=== PATIENT | female | born 1975 | race Two or more races ===

== ENCOUNTER 2017-01-15 21:32 | Inpatient (IN) | payer OTHER, MEDICAID ==
[~2017-01-15] VITALS: Ht 175.3 cm; Wt 122.8 kg
[~2017-01-15 21:32] MED LIST: NOR10T PO
[2017-01-15] MEDS ORDERED: SODIUM CHLORIDE 0.9% 1,000 ML IVB ONE (22:32)
[2017-01-15] MEDS ORDERED: ACETAMINOPHEN 325 MG TAB PO ONE (22:45)
[2017-01-15 22:59] LABS: Basophils # (auto) 0 uL; Basophils % (auto) 0.3 % (0.0-2.0); Eosinophils # (auto) 0.3 uL; Eosinophils % (auto) 2.5 % (0.0-7.0); Hematocrit 37.8 % (36.0-46.0); Hemoglobin 12.6 g/dL (12.2-16.2); Lymphocytes # (auto) 2.8 uL; Lymphocytes % (auto) 26.3 % (10.0-50.0); Mean Corpuscular Hemoglobin 28.8 pg (28.0-32.0); Mean Corpuscular Hgb Conc. 33.3 g/dL (32.0-36.0); Mean Corpuscular Volume 86.5 fL (80.0-100.0); Mean Platelet Volume 8.1 fL (7.4-10.4); Monocytes # (auto) 0.6 uL; Monocytes % (auto) 5.2 % (0.0-12.0); Neutrophils # (auto) 7.1 uL; Neutrophils % (auto) 65.7 % (37.0-80.0); Platelet Count (auto) 328 10^3/uL (140-450); Red Cell Distribution Width 13.9 % (11.6-16.0); White Blood Cell 10.8 10^3/uL (4.4-10.8)
[2017-01-15 23:06] LABS: Urine Bilirubin Negative (Negative); Urine Color Yellow (Yellow); Urine Glucose Normal (Normal); Urine Ketone Negative (Negative); Urine Nitrite Negative (Negative); Urine RBC 3 /hpf (0 - 4); Urine Squamous Epithelial Cell MOD /hpf (<5); Urine Urobilinogen Normal (Negative); Urine pH 5.5 (5.0-8.0)
[2017-01-15 23:07] LABS: Urine Blood 1+ /uL (Negative)
[2017-01-15 23:29] LABS: BUN/Creatinine Ratio 19.5; Calcium 8.2 mg/dL (8.5-10.1)
[2017-01-15 23:36] LABS: B-Type Natriuretic Peptide 220.57 pg/mL (0-100); Temperature: 22.7 C (20.0-25.0)
[2017-01-15 23:45] LABS: Bilirubin, Total 0.1 mg/dL (0.2-1.0); Total Protein 6.8 g/dL (6.4-8.2)
[2017-01-16] MEDS ORDERED: HEPARIN DRIP/D5W 100UNITS/ML 250 ML IV SCH ×4 (00:25→18:15)
[2017-01-16] MEDS ORDERED: HEPARIN SODIUM (PORCINE) 5000 UNITS/ML 1ML VIAL IV ONE ×3 (00:30→18:15)
[2017-01-16 01:20] LABS: INR 0.94 (0.9-1.15); Partial Thromboplastin Time 27.5 sec (22.64-33.71); Prothrombin Time 10.1 sec (9.37-12.3)
[2017-01-16] MEDS ORDERED: ASPirin 81 mg TAB PO ONE (04:30)
[2017-01-16] MEDS ORDERED: MORPHINE SULF INJ 2 MG/ML SYRINGE 1ML IV PRN (06:30)
[2017-01-16] MEDS ORDERED: DEXTROSE (50%) 50ML SYRG IV PRN (06:30)
[2017-01-16] MEDS ORDERED: NITROGLYCERIN 0.4 MG SL TAB SL PRN (06:30)
[2017-01-16] MEDS: SODIUM CHLORIDE 0.9% 1,000 ML IV SCH ×2 (06:52→21:49)
[2017-01-16 07:00] LABS: INR 0.93 (0.9-1.15); Partial Thromboplastin Time 27.6 sec (22.64-33.71)
[2017-01-16] MEDS: ONDANSETRON HCL 4 MG/2 ML VIAL IV PRN ×2 (08:59→23:29)
[2017-01-16] MEDS: MORPHINE SULF INJ 2 MG/ML SYRINGE 1ML IV PRN ×3 (08:59→20:24)
[2017-01-16] MEDS: FAMOTIDINE 20 MG TAB PO SCH (09:32)
[2017-01-16] MEDS: CARVEDILOL 12.5 MG TAB PO SCH ×3 (09:32→21:59)
[2017-01-16] MEDS ORDERED: FAMOTIDINE 20 MG TAB PO SCH (10:00)
[2017-01-16] MEDS ORDERED: METH500T6 PO (11:09)
[2017-01-16] MEDS ORDERED: CARV25TA55 PO (11:09)
[2017-01-16] MEDS ORDERED: TRAZ100T2 PO (11:09)
[2017-01-16] MEDS ORDERED: SULF400T11 PO (11:09)
[2017-01-16] MEDS ORDERED: GABA-339 PO (11:09)
[2017-01-16] MEDS: ACCU-CHEK COMFORT CURVE STRIP VI SCH ×2 (13:01→18:10)
[2017-01-16] MEDS: InsuLIN REG 1unit/0.01ml Soln (100units/ml) SC SCH ×2 (13:05→18:00)
[2017-01-16 15:09] VITALS: BP 124/83
[2017-01-16 15:40] LABS: INR 0.95 (0.9-1.15); Partial Thromboplastin Time 27.8 sec (22.64-33.71); Prothrombin Time 10.3 sec (9.37-12.3)
[2017-01-16 16:00] VITALS: BP 147/83
[2017-01-16 20:00] VITALS: BP 134/73
[2017-01-16] MEDS: ATORVASTATIN 20 MG TAB PO SCH ×2 (21:54→21:59)
[2017-01-16] MEDS ORDERED: ATORVASTATIN 20 MG TAB PO SCH ×3 (22:00)
[2017-01-17] VITALS (7 sets, daily range): BP systolic 130–156; BP diastolic 73–90
[2017-01-17] MEDS: ACCU-CHEK COMFORT CURVE STRIP VI SCH ×4 (00:23→17:39)
[2017-01-17] MEDS ORDERED: HEPARIN DRIP/D5W 100UNITS/ML 250 ML IV SCH ×3 (00:25→09:15)
[2017-01-17] MEDS: InsuLIN REG 1unit/0.01ml Soln (100units/ml) SC SCH ×4 (00:26→17:39)
[2017-01-17 03:52] LABS: INR 0.94 (0.9-1.15); Prothrombin Time 10.1 sec (9.37-12.3)
[2017-01-17] MEDS: ACETAMINOPHEN 325 MG TAB PO PRN ×2 (04:32→20:57)
[2017-01-17] MEDS: ONDANSETRON HCL 4 MG/2 ML VIAL IV PRN ×2 (04:33→15:02)
[2017-01-17] MEDS: ISOSORBIDE DINITRATE 10 MG TAB PO SCH ×3 (05:38→17:38)
[2017-01-17 06:27] LABS: Basophils # (auto) 0 uL; Basophils % (auto) 0.1 % (0.0-2.0); Eosinophils # (auto) 0 uL; Eosinophils % (auto) 0.3 % (0.0-7.0); Hematocrit 38.2 % (36.0-46.0); Hemoglobin 12.8 g/dL (12.2-16.2); Lymphocytes % (auto) 8.4 % (10.0-50.0); Mean Corpuscular Hgb Conc. 33.6 g/dL (32.0-36.0); Mean Corpuscular Volume 86.4 fL (80.0-100.0); Mean Platelet Volume 8.5 fL (7.4-10.4); Monocytes # (auto) 0.7 uL; Monocytes % (auto) 5.3 % (0.0-12.0); Neutrophils # (auto) 10.6 uL; Neutrophils % (auto) 85.9 % (37.0-80.0); Platelet Count (auto) 313 10^3/uL (140-450); Red Cell Distribution Width 13.7 % (11.6-16.0); White Blood Cell 12.4 10^3/uL (4.4-10.8)
[2017-01-17 07:05] LABS: Albumin 2.8 g/dL (3.4-5.0); BUN/Creatinine Ratio 18.8; Bilirubin, Total 0.4 mg/dL (0.2-1.0); Potassium 4.6 mmol/L (3.5-5.1); Total Protein 6.8 g/dL (6.4-8.2)
[2017-01-17] MEDS: diphenhdrAMINE HCL 50 MG/1 ML VL IV PRN ×3 (08:24→22:13)
[2017-01-17 08:56] LABS: INR 0.94 (0.9-1.15); Partial Thromboplastin Time 29.4 sec (22.64-33.71); Prothrombin Time 10.2 sec (9.37-12.3)
[2017-01-17] MEDS ORDERED: HEPARIN SODIUM (PORCINE) 5000 UNITS/ML 1ML VIAL IV ONE (09:15)
[2017-01-17] MEDS: CLOPIDOGREL BISULFATE 75 MG TAB PO SCH (09:47)
[2017-01-17] MEDS: FAMOTIDINE 20 MG TAB PO SCH (09:50)
[2017-01-17] MEDS: CARVEDILOL 12.5 MG TAB PO SCH ×2 (09:50→22:10)
[2017-01-17] MEDS: SODIUM CHLORIDE 0.9% 1,000 ML IV SCH (12:14)
[2017-01-17 14:16] LABS: INR 0.99 (0.9-1.15); Partial Thromboplastin Time 32.9 sec (22.64-33.71); Prothrombin Time 10.7 sec (9.37-12.3)
[2017-01-17] MEDS: HYDROcodone-ACET 5/325MG TAB PO PRN (15:01)
[2017-01-17] MEDS: ACETYLCYSTEINE ORAL for CIN 20%(200MG/ML) 4ML PO SCH ×2 (15:08→22:43)
[2017-01-17] MEDS ORDERED: PANTOPRAZOLE 40 MG TAB PO ONE (22:00)
[2017-01-17] MEDS: ATORVASTATIN 20 MG TAB PO SCH (22:09)
[2017-01-17] MEDS: MORPHINE SULF INJ 2 MG/ML SYRINGE 1ML IV PRN (22:11)
[2017-01-18] MEDS: SODIUM CHLORIDE 0.9% 1,000 ML IV SCH ×2 (01:21→15:39)
[2017-01-18] MEDS: ISOSORBIDE DINITRATE 10 MG TAB PO SCH ×3 (05:45→17:34)
[2017-01-18] MEDS: ACCU-CHEK COMFORT CURVE STRIP VI SCH ×5 (05:45→23:42)
[2017-01-18 05:53] VITALS: BP 137/56
[2017-01-18] MEDS: DOCUSATE SOD 100 MG CAP PO PRN ×2 (05:57→08:04)
[2017-01-18] MEDS: InsuLIN REG 1unit/0.01ml Soln (100units/ml) SC SCH ×4 (06:05→17:39)
[2017-01-18 06:23] LABS: Potassium 4.2 mmol/L (3.5-5.1)
[2017-01-18 06:35] LABS: BUN/Creatinine Ratio 16.3; Calcium 8.5 mg/dL (8.5-10.1)
[2017-01-18] MEDS: ACETAMINOPHEN 325 MG TAB PO PRN ×2 (07:37→13:24)
[2017-01-18] MEDS: diphenhdrAMINE HCL 50 MG/1 ML VL IV PRN ×2 (07:59→23:12)
[2017-01-18] MEDS: ONDANSETRON HCL 4 MG/2 ML VIAL IV PRN ×2 (08:01→23:13)
[2017-01-18] MEDS: HYDROcodone-ACET 5/325MG TAB PO PRN ×2 (08:04→20:11)
[2017-01-18 09:00] VITALS: BP 158/99
[2017-01-18] MEDS: CLOPIDOGREL BISULFATE 75 MG TAB PO SCH (09:43)
[2017-01-18] MEDS: CARVEDILOL 12.5 MG TAB PO SCH ×2 (09:43→22:20)
[2017-01-18] MEDS: PANTOPRAZOLE 40 MG TAB PO SCH (09:44)
[2017-01-18] MEDS: ACETYLCYSTEINE ORAL for CIN 20%(200MG/ML) 4ML PO SCH ×2 (09:55→23:01)
[2017-01-18] MEDS: LACTULOSE 20Gm/30ML SOLN PO SCH ×2 (12:40→23:41)
[2017-01-18 13:00] VITALS: BP 131/93
[2017-01-18 16:59] VITALS: BP 165/76
[2017-01-18 22:00] VITALS: BP 156/79
[2017-01-18] MEDS: ATORVASTATIN 20 MG TAB PO SCH (22:20)
[2017-01-19] MEDS: InsuLIN REG 1unit/0.01ml Soln (100units/ml) SC SCH ×4 (00:14→17:26)
[2017-01-19 05:30] VITALS: BP 137/65
[2017-01-19] MEDS: ISOSORBIDE DINITRATE 10 MG TAB PO SCH ×3 (05:49→17:19)
[2017-01-19] MEDS: LACTULOSE 20Gm/30ML SOLN PO SCH ×3 (05:52→17:17)
[2017-01-19] MEDS: SODIUM CHLORIDE 0.9% 1,000 ML IV SCH ×2 (05:52→21:47)
[2017-01-19] MEDS: ACCU-CHEK COMFORT CURVE STRIP VI SCH ×3 (05:53→17:17)
[2017-01-19] MEDS: HYDROcodone-ACET 5/325MG TAB PO PRN ×2 (06:23→22:01)
[2017-01-19 06:24] LABS: Basophils # (auto) 0 uL; Basophils % (auto) 0.3 % (0.0-2.0); Eosinophils # (auto) 0.2 uL; Eosinophils % (auto) 2.3 % (0.0-7.0); Hematocrit 34.4 % (36.0-46.0); Hemoglobin 11.5 g/dL (12.2-16.2); Lymphocytes # (auto) 1.8 uL; Lymphocytes % (auto) 22.5 % (10.0-50.0); Mean Corpuscular Hemoglobin 28.7 pg (28.0-32.0); Mean Corpuscular Hgb Conc. 33.6 g/dL (32.0-36.0); Mean Corpuscular Volume 85.5 fL (80.0-100.0); Mean Platelet Volume 7.9 fL (7.4-10.4); Monocytes # (auto) 0.4 uL; Monocytes % (auto) 5.3 % (0.0-12.0); Neutrophils # (auto) 5.6 uL; Neutrophils % (auto) 69.6 % (37.0-80.0); Platelet Count (auto) 313 10^3/uL (140-450); Red Cell Distribution Width 13.9 % (11.6-16.0)
[2017-01-19 06:45] LABS: BUN/Creatinine Ratio 15.1; Calcium 8.8 mg/dL (8.5-10.1)
[2017-01-19] MEDS: MORPHINE SULF INJ 2 MG/ML SYRINGE 1ML IV PRN ×2 (08:12→16:19)
[2017-01-19] MEDS: ONDANSETRON HCL 4 MG/2 ML VIAL IV PRN ×2 (08:17→16:13)
[2017-01-19 09:00] VITALS: BP 156/71
[2017-01-19] MEDS: CARVEDILOL 12.5 MG TAB PO SCH ×2 (09:56→21:48)
[2017-01-19] MEDS: CLOPIDOGREL BISULFATE 75 MG TAB PO SCH (10:00)
[2017-01-19] MEDS: ACETYLCYSTEINE ORAL for CIN 20%(200MG/ML) 4ML PO SCH (10:00)
[2017-01-19] MEDS: PANTOPRAZOLE 40 MG TAB PO SCH (10:00)
[2017-01-19] MEDS ORDERED: IODIXANOL 320MG/ML 100ML BTL IV ONE ×3 (10:35→12:52)
[2017-01-19] MEDS ORDERED: LIDOCAINE 2%HCL (LOCAL ANESTH.) INJ 20ML MDV ONE ×2 (10:36→12:22)
[2017-01-19] MEDS ORDERED: LABETALOL HCL 5 MG/ML 4ML SYRINGE IV ONE ×2 (11:19→14:30)
[2017-01-19] MEDS ORDERED: hydrALAZINE HCL 20 MG/ML VL ONE ×2 (11:20→12:54)
[2017-01-19] MEDS ORDERED: MIDAZOLAM HCL 1MG/1ML-2 ML VIAL ONE ×3 (11:54→12:23)
[2017-01-19] MEDS ORDERED: ANGIOMAX 250 MG VIAL IV ONE (11:54)
[2017-01-19] MEDS ORDERED: fentaNYL CITRATE 100 MCG/2 ML VL ONE (11:54)
[2017-01-19] MEDS ORDERED: SODIUM CHL 0.9% 50 ML ONE (11:54)
[2017-01-19] MEDS ORDERED: VERAPAMIL 2.5MG/ML INJ 2ML VIAL IV ONE (12:12)
[2017-01-19] MEDS ORDERED: ASPirin 325 MG TAB ONE (12:37)
[2017-01-19] MEDS ORDERED: PRASUGREL HCL 10 MG TAB ONE (12:37)
[2017-01-19] MEDS ORDERED: diphenhdrAMINE HCL 50 MG/1 ML VL ONE (12:40)
[2017-01-19] MEDS ORDERED: hydrALAZINE HCL 25 MG TAB PO PRN (13:30)
[2017-01-19] MEDS ORDERED: hydrALAZINE HCL 20 MG/ML VL IV ONE (14:30)
[2017-01-19 14:36] VITALS: BP 130/69
[2017-01-19] MEDS: diphenhdrAMINE HCL 50 MG/1 ML VL IV PRN (16:13)
[2017-01-19 17:00] VITALS: BP 161/79
[2017-01-19 21:38] VITALS: BP 101/48
[2017-01-19] MEDS: ATORVASTATIN 20 MG TAB PO SCH (21:48)
[2017-01-19] MEDS: ACETAMINOPHEN 325 MG TAB PO PRN (23:33)
[2017-01-19] MEDS ORDERED: diphenhdrAMINE HCL 25 MG CAP PO PRN (23:45)
[2017-01-20] MEDS: ACCU-CHEK COMFORT CURVE STRIP VI SCH ×2 (00:02→06:08)
[2017-01-20] MEDS: InsuLIN REG 1unit/0.01ml Soln (100units/ml) SC SCH ×3 (00:03→11:56)
[2017-01-20] MEDS: LACTULOSE 20Gm/30ML SOLN PO SCH ×2 (06:00)
[2017-01-20 06:04] LABS: Basophils # (auto) 0 uL; Basophils % (auto) 0.3 % (0.0-2.0); Eosinophils # (auto) 0.1 uL; Eosinophils % (auto) 1.7 % (0.0-7.0); Hematocrit 33.3 % (36.0-46.0); Hemoglobin 11.1 g/dL (12.2-16.2); Lymphocytes # (auto) 1.5 uL; Mean Corpuscular Hemoglobin 28.8 pg (28.0-32.0); Mean Corpuscular Hgb Conc. 33.4 g/dL (32.0-36.0); Mean Corpuscular Volume 86.3 fL (80.0-100.0); Mean Platelet Volume 8.2 fL (7.4-10.4); Monocytes # (auto) 0.4 uL; Monocytes % (auto) 4.7 % (0.0-12.0); Neutrophils # (auto) 6.9 uL; Neutrophils % (auto) 76.3 % (37.0-80.0); Platelet Count (auto) 326 10^3/uL (140-450); Red Cell Distribution Width 13.9 % (11.6-16.0)
[2017-01-20] MEDS: ISOSORBIDE DINITRATE 10 MG TAB PO SCH (06:08)
[2017-01-20 06:27] LABS: Potassium 3.9 mmol/L (3.5-5.1)
[2017-01-20 06:32] LABS: BUN/Creatinine Ratio 14.4
[2017-01-20 08:12] VITALS: BP 140/72
[2017-01-20] MEDS: PANTOPRAZOLE 40 MG TAB PO SCH (09:45)
[2017-01-20] MEDS ORDERED: PRASUGREL HCL 10 MG TAB PO SCH (10:00)
[2017-01-20] MEDS ORDERED: ASPirin 81 mg TAB PO SCH (10:00)
[2017-01-20] MEDS ORDERED: ASPI81CH43 PO (10:07)
[2017-01-20] MEDS ORDERED: CAR125T PO (10:07)
[2017-01-20] MEDS ORDERED: PANT40T PO (10:07)
[2017-01-20] MEDS ORDERED: ATOR20TA50 PO (10:07)
[2017-01-20] MEDS ORDERED: ISOS10TA2 PO (10:07)
[2017-01-20] MEDS ORDERED: CLOP75TA28 PO (11:04)
[2017-01-20] MEDS: HYDROcodone-ACET 5/325MG TAB PO PRN (11:53)
[2017-01-20 12:01] VITALS: BP 140/72
[2017-01-20 12:20] VITALS: BP 156/75
== END 2017-01-20 12:54 | disposition home or self-care (01) | DRG 246 ==
LOC: ER 21:32 → EDBD 21:32 → TELE 21:33 → DOU IN ICU 01-16 14:41 → TELE-CENTR 01-17 21:40
PROVIDERS: ADMIT Nurse Practitioner; ATTEND Internal Medicine
PROC: 027035Z Dilation of Coronary Artery, One Artery with Two Drug-eluting Intraluminal Devices, Percutaneous Approach (ICD-10-PCS; principal; 2017-01-19)
PROC: 4A023N7 Measurement of Cardiac Sampling and Pressure, Left Heart, Percutaneous Approach (ICD-10-PCS; 2017-01-19)
PROC: B2111ZZ Fluoroscopy of Multiple Coronary Arteries using Low Osmolar Contrast (ICD-10-PCS; 2017-01-19)
PROC: B2131ZZ Fluoroscopy of Multiple Coronary Artery Bypass Grafts using Low Osmolar Contrast (ICD-10-PCS; 2017-01-19)
DX: I21.4 Non-ST elevation (NSTEMI) myocardial infarction (principal); N17.0 Acute kidney failure with tubular necrosis; Z68.41 Body mass index [BMI] 40.0-44.9, adult; J98.11 Atelectasis; N83.202 Unspecified ovarian cyst, left side; E11.40 Type 2 diabetes mellitus with diabetic neuropathy, unspecified; E11.621 Type 2 diabetes mellitus with foot ulcer; E66.01 Morbid (severe) obesity due to excess calories; E78.5 Hyperlipidemia, unspecified; N18.3 Chronic kidney disease, stage 3 (moderate); L97.529 Non-pressure chronic ulcer of other part of left foot with unspecified severity; E11.22 Type 2 diabetes mellitus with diabetic chronic kidney disease; I12.9 Hypertensive chronic kidney disease with stage 1 through stage 4 chronic kidney disease, or unspecified chronic kidney disease; F12.90 Cannabis use, unspecified, uncomplicated; F17.210 Nicotine dependence, cigarettes, uncomplicated; G89.29 Other chronic pain; M54.9 Dorsalgia, unspecified; K29.70 Gastritis, unspecified, without bleeding; M19.90 Unspecified osteoarthritis, unspecified site; M47.816 Spondylosis without myelopathy or radiculopathy, lumbar region; M48.06 Spinal stenosis, lumbar region; N83.201 Unspecified ovarian cyst, right side; Z79.4 Long term (current) use of insulin; Z91.19 Patient's noncompliance with other medical treatment and regimen; Z89.411 Acquired absence of right great toe; Z79.891 Long term (current) use of opiate analgesic; Z80.0 Family history of malignant neoplasm of digestive organs; Z80.41 Family history of malignant neoplasm of ovary; Z82.49 Family history of ischemic heart disease and other diseases of the circulatory system; Z83.3 Family history of diabetes mellitus; Z95.1 Presence of aortocoronary bypass graft; Z87.440 Personal history of urinary (tract) infections; Z71.6 Tobacco abuse counseling; Z79.899 Other long term (current) drug therapy; Z79.84 Long term (current) use of oral hypoglycemic drugs
CPT/HCPCS: 36415; 71010; 73630; 74176; 76830; 76856; 80048; 80053; 80061; 81001; 82378; 82962; 83036; 83605; 83735; 83880; 84484; 84702; 85025; 85379; 85610; 85730; 86304; 86850; 86900; 86901; 87081; 92941; 93005; 93306; 93458; 93923; 94761; 96365; 96366; 96375; 96376; J1815; J2250; J2405; J3490; Q9967

== ENCOUNTER 2017-02-21 12:48 | Inpatient (IN) | payer OTHER, MEDICAID ==
[~2017-02-21] VITALS: Ht 175.3 cm; Wt 119.5 kg
[~2017-02-21 12:48] MED LIST changes: +ASPI81CH43 PO; +ATOR20TA50 PO; +CAR125T PO; +CARV25TA55 PO; +CLOP75TA28 PO; +GABA-339 PO; +ISOS10TA2 PO; +METH500T6 PO; +PANT40T PO; +TRAZ100T2 PO
[2017-02-21 13:55] LABS: Basophils # (auto) 0 uL; Basophils % (auto) 0.3 % (0.0-2.0); Eosinophils # (auto) 0.2 uL; Eosinophils % (auto) 1.9 % (0.0-7.0); Hematocrit 36.8 % (36.0-46.0); Hemoglobin 12.5 g/dL (12.2-16.2); Lymphocytes # (auto) 1.7 uL; Lymphocytes % (auto) 20.3 % (10.0-50.0); Mean Corpuscular Hemoglobin 29.3 pg (28.0-32.0); Mean Corpuscular Volume 86.4 fL (80.0-100.0); Mean Platelet Volume 8.3 fL (7.4-10.4); Monocytes # (auto) 0.5 uL; Monocytes % (auto) 6.3 % (0.0-12.0); Neutrophils # (auto) 6.1 uL; Neutrophils % (auto) 71.2 % (37.0-80.0); Platelet Count (auto) 297 10^3/uL (140-450); Red Cell Distribution Width 13.9 % (11.6-16.0); White Blood Cell 8.6 10^3/uL (4.4-10.8)
[2017-02-21 13:59] LABS: Urine Bilirubin Negative (Negative); Urine Blood TRACE /uL (Negative); Urine Color Yellow (Yellow); Urine Glucose 2+ mg/dL (Normal); Urine Hyaline Cast FEW /lpf (0 - 2); Urine Ketone Negative (Negative); Urine Mucus FEW (None Seen); Urine Nitrite Negative (Negative); Urine RBC 4 /hpf (0 - 4); Urine Squamous Epithelial Cell FEW /hpf (<5); Urine Urobilinogen Normal (Negative); Urine pH 5.5 (5.0-8.0)
[2017-02-21 14:39] LABS: Albumin 3.1 g/dL (3.4-5.0); Bilirubin, Total 0.3 mg/dL (0.2-1.0); Calcium 8.5 mg/dL (8.5-10.1); Magnesium 1.7 mg/dL (1.6-2.6); Potassium 4.3 mmol/L (3.5-5.1); Total Protein 6.7 g/dL (6.4-8.2)
[2017-02-21] MEDS ORDERED: ATOR40TA52 (16:15)
[2017-02-21] MEDS ORDERED: FUR20T (16:15)
[2017-02-21] MEDS ORDERED: AMLO5TAB2 (16:15)
[2017-02-21] MEDS ORDERED: CYCL1TAB18 (16:15)
[2017-02-21] MEDS ORDERED: POTA10TA51 (16:15)
[2017-02-21] MEDS ORDERED: INSUINJ37 SC (16:17)
[2017-02-21] MEDS ORDERED: NOVOLOG SC (16:17)
[2017-02-21] MEDS ORDERED: SODIUM CHLORIDE 0.9% 1,000 ML IV ONE (16:47)
[2017-02-21] MEDS ORDERED: METOCLOPRAMIDE HCL 5MG/ml INJ 2ml VIAL IV ONE (17:00)
[2017-02-21] MEDS ORDERED: MORPHINE SULF INJ 2 MG/ML SYRINGE 1ML IV ONE (17:00)
[2017-02-21 18:05] LABS: B-Type Natriuretic Peptide 181.96 pg/mL (0-100)
[2017-02-21 18:06] LABS: Temperature: 22.9 C (20.0-25.0)
[2017-02-21] MEDS ORDERED: TEMAZEPAM 15 MG CAP PO PRN (18:45)
[2017-02-21] MEDS ORDERED: LACTULOSE 20Gm/30ML SOLN PO PRN (18:45)
[2017-02-21] MEDS ORDERED: metroNIDAZOLE 500MG/100ML 100 ML IV ONE (18:45)
[2017-02-21] MEDS ORDERED: DEXTROSE (50%) 50ML SYRG IV PRN (18:45)
[2017-02-21] MEDS ORDERED: ACETAMINOPHEN 500 MG TAB PO PRN (18:45)
[2017-02-21] MEDS ORDERED: NITROGLYCERIN 0.4 MG SL TAB SL PRN (18:45)
[2017-02-21] MEDS ORDERED: MORPHINE SULF INJ 2 MG/ML SYRINGE 1ML IV PRN (18:45)
[2017-02-21] MEDS ORDERED: LORazepam 0.5 MG TAB PO PRN (18:45)
[2017-02-21] MEDS: ISOSORBIDE DINITRATE 10 MG TAB PO SCH (19:36)
[2017-02-21] MEDS: ACCU-CHEK COMFORT CURVE STRIP VI SCH (20:00)
[2017-02-21] MEDS: InsuLIN REG 1unit/0.01ml Soln (100units/ml) SC SCH (20:00)
[2017-02-21 20:10] LABS: Amylase 42 U/L (25-115)
[2017-02-21 22:00] VITALS: BP 141/74
[2017-02-21] MEDS: ATORVASTATIN 20 MG TAB PO SCH (22:51)
[2017-02-21] MEDS: GABAPENTIN 300 MG CAP PO SCH (22:52)
[2017-02-21] MEDS: traZODone HCL 50 MG TAB PO SCH (22:53)
[2017-02-21] MEDS: metroNIDAZOLE 500 MG TAB PO SCH (22:53)
[2017-02-21] MEDS: CARVEDILOL 12.5 MG TAB PO SCH (22:53)
[2017-02-21] MEDS: METHOCARBAMOL 500 MG TAB PO SCH (22:54)
[2017-02-21] MEDS: MORPHINE SULF INJ 2 MG/ML SYRINGE 1ML IV PRN (23:27)
[2017-02-22] MEDS: ACCU-CHEK COMFORT CURVE STRIP VI SCH ×6 (00:12→19:43)
[2017-02-22] MEDS: InsuLIN REG 1unit/0.01ml Soln (100units/ml) SC SCH ×6 (00:12→19:43)
[2017-02-22 05:00] VITALS: BP 145/70
[2017-02-22] MEDS: MORPHINE SULF INJ 2 MG/ML SYRINGE 1ML IV PRN ×4 (05:41→22:00)
[2017-02-22] MEDS: ISOSORBIDE DINITRATE 10 MG TAB PO SCH ×3 (05:42→18:00)
[2017-02-22] MEDS: GABAPENTIN 300 MG CAP PO SCH ×3 (05:42→22:00)
[2017-02-22] MEDS: METHOCARBAMOL 500 MG TAB PO SCH ×3 (05:42→22:01)
[2017-02-22] MEDS: amLODIPine BESYLATE 5 MG TAB PO SCH (05:43)
[2017-02-22] MEDS: metroNIDAZOLE 500 MG TAB PO SCH ×3 (05:43→22:00)
[2017-02-22 05:57] LABS: Basophils # (auto) 0 uL; Basophils % (auto) 0.4 % (0.0-2.0); Eosinophils # (auto) 0.3 uL; Eosinophils % (auto) 3.3 % (0.0-7.0); Hematocrit 37.1 % (36.0-46.0); Hemoglobin 12.6 g/dL (12.2-16.2); Lymphocytes % (auto) 23.7 % (10.0-50.0); Mean Corpuscular Hemoglobin 29.3 pg (28.0-32.0); Mean Corpuscular Volume 86.2 fL (80.0-100.0); Mean Platelet Volume 8.2 fL (7.4-10.4); Monocytes # (auto) 0.6 uL; Monocytes % (auto) 6.8 % (0.0-12.0); Neutrophils # (auto) 5.7 uL; Neutrophils % (auto) 65.8 % (37.0-80.0); Platelet Count (auto) 286 10^3/uL (140-450); Red Cell Distribution Width 13.9 % (11.6-16.0); White Blood Cell 8.6 10^3/uL (4.4-10.8)
[2017-02-22 06:20] LABS: Albumin 2.8 g/dL (3.4-5.0); BUN/Creatinine Ratio 24.8; Bilirubin, Total 0.3 mg/dL (0.2-1.0); Calcium 8.1 mg/dL (8.5-10.1); Potassium 3.9 mmol/L (3.5-5.1); Total Protein 5.9 g/dL (6.4-8.2)
[2017-02-22 06:37] LABS: B-Type Natriuretic Peptide 165.23 pg/mL (0-100); Temperature: 23.3 C (20.0-25.0)
[2017-02-22 08:19] VITALS: BP 140/64
[2017-02-22] MEDS: FUROSEMIDE 40 MG/4 ML VIAL IV SCH (10:46)
[2017-02-22] MEDS: PANTOPRAZOLE 40 MG TAB PO SCH (10:47)
[2017-02-22] MEDS: POTASSIUM CHL 20 Meq TABLET PO SCH (10:47)
[2017-02-22] MEDS: ENALAPRIL MALEATE 2.5 MG TAB PO SCH (10:47)
[2017-02-22] MEDS: CLOPIDOGREL BISULFATE 75 MG TAB PO SCH (10:47)
[2017-02-22] MEDS: ASPirin 81 mg TAB PO SCH (10:48)
[2017-02-22] MEDS: ENOXAPARIN SOD 40 MG/0.4 ML SYRINGE SC SCH (10:48)
[2017-02-22] MEDS: CARVEDILOL 12.5 MG TAB PO SCH ×2 (10:48→22:03)
[2017-02-22 12:14] VITALS: BP 151/84
[2017-02-22 16:34] VITALS: BP 124/72
[2017-02-22 22:00] VITALS: BP 144/77
[2017-02-22] MEDS: ATORVASTATIN 20 MG TAB PO SCH (22:00)
[2017-02-22] MEDS: traZODone HCL 50 MG TAB PO SCH (22:07)
[2017-02-23] VITALS (7 sets, daily range): BP systolic 95–130; BP diastolic 44–70
[2017-02-23] MEDS: InsuLIN REG 1unit/0.01ml Soln (100units/ml) SC SCH ×6 (00:24→20:33)
[2017-02-23] MEDS: ACCU-CHEK COMFORT CURVE STRIP VI SCH ×6 (00:24→20:32)
[2017-02-23] MEDS: MORPHINE SULF INJ 2 MG/ML SYRINGE 1ML IV PRN ×4 (04:21→21:12)
[2017-02-23 06:04] LABS: Basophils # (auto) 0 uL; Basophils % (auto) 0.4 % (0.0-2.0); Eosinophils # (auto) 0.2 uL; Hematocrit 36.4 % (36.0-46.0); Hemoglobin 12.4 g/dL (12.2-16.2); Lymphocytes # (auto) 1.6 uL; Lymphocytes % (auto) 21.8 % (10.0-50.0); Mean Corpuscular Hemoglobin 29.3 pg (28.0-32.0); Mean Corpuscular Hgb Conc. 34.2 g/dL (32.0-36.0); Mean Corpuscular Volume 85.9 fL (80.0-100.0); Monocytes # (auto) 0.7 uL; Monocytes % (auto) 8.7 % (0.0-12.0); Neutrophils # (auto) 4.9 uL; Neutrophils % (auto) 66.1 % (37.0-80.0); Platelet Count (auto) 278 10^3/uL (140-450); Red Cell Distribution Width 13.6 % (11.6-16.0); White Blood Cell 7.5 10^3/uL (4.4-10.8)
[2017-02-23] MEDS: GABAPENTIN 300 MG CAP PO SCH ×3 (06:12→21:40)
[2017-02-23] MEDS: ISOSORBIDE DINITRATE 10 MG TAB PO SCH ×3 (06:13→18:00)
[2017-02-23] MEDS: metroNIDAZOLE 500 MG TAB PO SCH ×3 (06:13→21:39)
[2017-02-23] MEDS: amLODIPine BESYLATE 5 MG TAB PO SCH (06:13)
[2017-02-23] MEDS: METHOCARBAMOL 500 MG TAB PO SCH ×3 (06:13→21:40)
[2017-02-23 06:17] LABS: BUN/Creatinine Ratio 22.1; Calcium 8.2 mg/dL (8.5-10.1); Potassium 3.7 mmol/L (3.5-5.1)
[2017-02-23] MEDS: PROMETHAZINE HCL 25 MG/ML 1ML IV PRN (08:48)
[2017-02-23] MEDS: ASPirin 81 mg TAB PO SCH (10:35)
[2017-02-23] MEDS: POTASSIUM CHL 20 Meq TABLET PO SCH (10:35)
[2017-02-23] MEDS: FUROSEMIDE 40 MG/4 ML VIAL IV SCH (10:36)
[2017-02-23] MEDS: ENALAPRIL MALEATE 2.5 MG TAB PO SCH (10:37)
[2017-02-23] MEDS: CARVEDILOL 12.5 MG TAB PO SCH ×2 (10:37→21:39)
[2017-02-23] MEDS: CLOPIDOGREL BISULFATE 75 MG TAB PO SCH (10:37)
[2017-02-23] MEDS: ENOXAPARIN SOD 40 MG/0.4 ML SYRINGE SC SCH (10:38)
[2017-02-23] MEDS: HYDROcodone-ACET 5/325MG TAB PO PRN ×2 (10:40→18:17)
[2017-02-23] MEDS: PANTOPRAZOLE 40 MG TAB PO SCH (10:42)
[2017-02-23] MEDS: MULTIPLE VITAMINS W/ MINERALS TAB PO SCH (18:21)
[2017-02-23] MEDS: MICONAZOLE NITRATE 2 % VAGINAL CREAM 45 GM PV SCH (21:38)
[2017-02-23] MEDS: ATORVASTATIN 20 MG TAB PO SCH (21:40)
[2017-02-23] MEDS: traZODone HCL 50 MG TAB PO SCH (21:40)
[2017-02-23] MEDS: ASCORBIC ACID 500 MG TAB PO SCH (21:41)
[2017-02-24] VITALS (7 sets, daily range): BP systolic 93–153; BP diastolic 43–76
[2017-02-24] MEDS: ACCU-CHEK COMFORT CURVE STRIP VI SCH ×5 (00:04→21:12)
[2017-02-24] MEDS: InsuLIN REG 1unit/0.01ml Soln (100units/ml) SC SCH ×5 (00:04→21:28)
[2017-02-24] MEDS: MORPHINE SULF INJ 2 MG/ML SYRINGE 1ML IV PRN ×5 (01:17→20:03)
[2017-02-24] MEDS: metroNIDAZOLE 500 MG TAB PO SCH ×3 (06:13→21:12)
[2017-02-24] MEDS: METHOCARBAMOL 500 MG TAB PO SCH ×3 (06:14→21:11)
[2017-02-24] MEDS: GABAPENTIN 300 MG CAP PO SCH ×3 (06:14→21:10)
[2017-02-24 06:16] LABS: Basophils # (auto) 0 uL; Basophils % (auto) 0.4 % (0.0-2.0); Eosinophils # (auto) 0.3 uL; Eosinophils % (auto) 3.2 % (0.0-7.0); Hematocrit 38.3 % (36.0-46.0); Lymphocytes # (auto) 1.9 uL; Lymphocytes % (auto) 23.3 % (10.0-50.0); Mean Corpuscular Hemoglobin 29.1 pg (28.0-32.0); Mean Corpuscular Volume 85.5 fL (80.0-100.0); Mean Platelet Volume 8.2 fL (7.4-10.4); Monocytes # (auto) 0.7 uL; Monocytes % (auto) 8.4 % (0.0-12.0); Neutrophils # (auto) 5.2 uL; Neutrophils % (auto) 64.7 % (37.0-80.0); Platelet Count (auto) 283 10^3/uL (140-450); Red Cell Distribution Width 13.7 % (11.6-16.0)
[2017-02-24] MEDS: amLODIPine BESYLATE 5 MG TAB PO SCH (06:25)
[2017-02-24] MEDS: ISOSORBIDE DINITRATE 10 MG TAB PO SCH ×3 (06:25→17:35)
[2017-02-24 06:37] LABS: BUN/Creatinine Ratio 19.5; Potassium 3.7 mmol/L (3.5-5.1)
[2017-02-24] MEDS: HYDROcodone-ACET 5/325MG TAB PO PRN ×2 (09:09→18:37)
[2017-02-24] MEDS: POTASSIUM CHL 20 Meq TABLET PO SCH (10:35)
[2017-02-24] MEDS: PANTOPRAZOLE 40 MG TAB PO SCH (10:35)
[2017-02-24] MEDS: CARVEDILOL 12.5 MG TAB PO SCH ×2 (10:36→21:10)
[2017-02-24] MEDS: CLOPIDOGREL BISULFATE 75 MG TAB PO SCH (10:37)
[2017-02-24] MEDS: ENALAPRIL MALEATE 2.5 MG TAB PO SCH (10:37)
[2017-02-24] MEDS: ASPirin 81 mg TAB PO SCH (10:38)
[2017-02-24] MEDS: PROMETHAZINE HCL 25 MG/ML 1ML IV PRN ×2 (10:38→16:05)
[2017-02-24] MEDS: ASCORBIC ACID 500 MG TAB PO SCH ×2 (10:38→21:11)
[2017-02-24] MEDS: MULTIPLE VITAMINS W/ MINERALS TAB PO SCH (10:38)
[2017-02-24] MEDS: ENOXAPARIN SOD 40 MG/0.4 ML SYRINGE SC SCH (10:39)
[2017-02-24] MEDS ORDERED: DEXTROSE (50%) 50ML SYRG IV PRN (14:30)
[2017-02-24] MEDS: ATORVASTATIN 20 MG TAB PO SCH (21:10)
[2017-02-24] MEDS: traZODone HCL 50 MG TAB PO SCH (21:11)
[2017-02-24] MEDS: MICONAZOLE NITRATE 2 % VAGINAL CREAM 45 GM PV SCH (21:24)
[2017-02-24] MEDS: ACETYLCYSTEINE ORAL for CIN 20%(200MG/ML) 4ML PO SCH (21:27)
[2017-02-25] MEDS: ISOSORBIDE DINITRATE 10 MG TAB PO SCH ×3 (05:25→17:53)
[2017-02-25] MEDS: GABAPENTIN 300 MG CAP PO SCH ×3 (05:25→21:41)
[2017-02-25] MEDS: metroNIDAZOLE 500 MG TAB PO SCH ×3 (05:25→22:40)
[2017-02-25 05:29] VITALS: BP 104/63
[2017-02-25] MEDS: METHOCARBAMOL 500 MG TAB PO SCH ×3 (05:45→22:24)
[2017-02-25] MEDS: PROMETHAZINE HCL 25 MG/ML 1ML IV PRN (05:52)
[2017-02-25] MEDS: MORPHINE SULF INJ 2 MG/ML SYRINGE 1ML IV PRN ×4 (05:52→22:25)
[2017-02-25] MEDS: amLODIPine BESYLATE 5 MG TAB PO SCH (06:09)
[2017-02-25] MEDS: ACCU-CHEK COMFORT CURVE STRIP VI SCH ×4 (06:09→22:00)
[2017-02-25] MEDS: InsuLIN REG 1unit/0.01ml Soln (100units/ml) SC SCH ×4 (06:11→21:53)
[2017-02-25 08:00] VITALS: BP 118/60
[2017-02-25] MEDS: ENOXAPARIN SOD 40 MG/0.4 ML SYRINGE SC SCH (10:00)
[2017-02-25] MEDS: ASCORBIC ACID 500 MG TAB PO SCH ×2 (10:05→21:41)
[2017-02-25] MEDS: CLOPIDOGREL BISULFATE 75 MG TAB PO SCH (10:06)
[2017-02-25] MEDS: POTASSIUM CHL 20 Meq TABLET PO SCH (10:06)
[2017-02-25] MEDS: CARVEDILOL 12.5 MG TAB PO SCH ×2 (10:07→22:35)
[2017-02-25] MEDS: PANTOPRAZOLE 40 MG TAB PO SCH (10:08)
[2017-02-25] MEDS: ENALAPRIL MALEATE 2.5 MG TAB PO SCH (10:08)
[2017-02-25] MEDS: ASPirin 81 mg TAB PO SCH (10:08)
[2017-02-25] MEDS: ACETYLCYSTEINE ORAL for CIN 20%(200MG/ML) 4ML PO SCH ×2 (10:09→22:33)
[2017-02-25] MEDS: MULTIPLE VITAMINS W/ MINERALS TAB PO SCH (10:09)
[2017-02-25 10:23] VITALS: BP 118/60
[2017-02-25] MEDS ORDERED: ONDANSETRON HCL 4 MG/2 ML VIAL IV PRN (10:45)
[2017-02-25] MEDS ORDERED: diphenhdrAMINE HCL 25 MG CAP PO PRN (10:45)
[2017-02-25 11:42] LABS: BUN/Creatinine Ratio 21.7; Calcium 8.1 mg/dL (8.5-10.1); Potassium 4.7 mmol/L (3.5-5.1)
[2017-02-25 13:30] VITALS: BP 118/56
[2017-02-25] MEDS: HYDROcodone-ACET 10/325MG TAB PO PRN ×2 (14:34→19:40)
[2017-02-25 17:00] VITALS: BP 117/64
[2017-02-25 20:00] VITALS: BP 111/61
[2017-02-25] MEDS: ATORVASTATIN 20 MG TAB PO SCH (21:41)
[2017-02-25] MEDS: traZODone HCL 50 MG TAB PO SCH (21:45)
[2017-02-25] MEDS: MICONAZOLE NITRATE 2 % VAGINAL CREAM 45 GM PV SCH (22:35)
[2017-02-26 00:44] VITALS: BP 111/61
[2017-02-26 05:10] LABS: Urine Bilirubin Negative (Negative); Urine Blood Negative /uL (Negative); Urine Color Yellow (Yellow); Urine Glucose Normal (Normal); Urine Hyaline Cast FEW /lpf (0 - 2); Urine Ketone Negative (Negative); Urine Nitrite Negative (Negative); Urine RBC 1 /hpf (0 - 4); Urine Squamous Epithelial Cell FEW /hpf (<5); Urine Urobilinogen Normal (Negative)
[2017-02-26 05:24] VITALS: BP 115/61
[2017-02-26] MEDS: METHOCARBAMOL 500 MG TAB PO SCH ×2 (06:00→15:10)
[2017-02-26] MEDS: metroNIDAZOLE 500 MG TAB PO SCH ×2 (06:00→15:09)
[2017-02-26] MEDS: ISOSORBIDE DINITRATE 10 MG TAB PO SCH ×2 (06:00→12:21)
[2017-02-26] MEDS: GABAPENTIN 300 MG CAP PO SCH ×2 (06:00→15:09)
[2017-02-26 06:31] LABS: Basophils # (auto) 0 uL; Basophils % (auto) 0.4 % (0.0-2.0); Eosinophils # (auto) 0.3 uL; Lymphocytes # (auto) 1.9 uL; Lymphocytes % (auto) 25.6 % (10.0-50.0); Mean Corpuscular Hemoglobin 29.6 pg (28.0-32.0); Mean Corpuscular Hgb Conc. 34.2 g/dL (32.0-36.0); Mean Corpuscular Volume 86.4 fL (80.0-100.0); Mean Platelet Volume 8.1 fL (7.4-10.4); Monocytes # (auto) 0.5 uL; Monocytes % (auto) 7.4 % (0.0-12.0); Neutrophils # (auto) 4.6 uL; Neutrophils % (auto) 62.6 % (37.0-80.0); Platelet Count (auto) 285 10^3/uL (140-450); Red Cell Distribution Width 13.5 % (11.6-16.0); White Blood Cell 7.4 10^3/uL (4.4-10.8)
[2017-02-26] MEDS: ACCU-CHEK COMFORT CURVE STRIP VI SCH ×2 (06:33→12:00)
[2017-02-26 06:44] LABS: INR 0.98 (0.9-1.15); Prothrombin Time 10.7 sec (9.37-12.3)
[2017-02-26] MEDS: InsuLIN REG 1unit/0.01ml Soln (100units/ml) SC SCH ×2 (06:53→12:20)
[2017-02-26] MEDS: amLODIPine BESYLATE 5 MG TAB PO SCH (07:00)
[2017-02-26] MEDS ORDERED: IODIXANOL 320MG/ML 100ML BTL IV ONE (07:10)
[2017-02-26] MEDS ORDERED: LIDOCAINE 2%HCL (LOCAL ANESTH.) INJ 20ML MDV ONE (07:10)
[2017-02-26 07:27] LABS: BUN/Creatinine Ratio 23.7; Calcium 8.6 mg/dL (8.5-10.1); Potassium 4.6 mmol/L (3.5-5.1)
[2017-02-26 08:10] VITALS: BP 115/76
[2017-02-26] MEDS: MORPHINE SULF INJ 2 MG/ML SYRINGE 1ML IV PRN (08:28)
[2017-02-26] MEDS ORDERED: SODIUM CHLORIDE 0.9% 1,000 ML IV ONE (08:45)
[2017-02-26 09:00] VITALS: BP 115/76
[2017-02-26] MEDS ORDERED: MET500T PO (09:45)
[2017-02-26] MEDS: MULTIPLE VITAMINS W/ MINERALS TAB PO SCH (10:14)
[2017-02-26] MEDS: PANTOPRAZOLE 40 MG TAB PO SCH (10:14)
[2017-02-26] MEDS: ASCORBIC ACID 500 MG TAB PO SCH (10:15)
[2017-02-26] MEDS: ASPirin 81 mg TAB PO SCH (10:15)
[2017-02-26] MEDS: CLOPIDOGREL BISULFATE 75 MG TAB PO SCH (10:15)
[2017-02-26] MEDS: CARVEDILOL 12.5 MG TAB PO SCH (10:16)
[2017-02-26] MEDS: POTASSIUM CHL 20 Meq TABLET PO SCH (10:16)
[2017-02-26] MEDS: ENALAPRIL MALEATE 2.5 MG TAB PO SCH (10:17)
[2017-02-26] MEDS: ENOXAPARIN SOD 40 MG/0.4 ML SYRINGE SC SCH (10:33)
[2017-02-26] MEDS: ACETYLCYSTEINE ORAL for CIN 20%(200MG/ML) 4ML PO SCH (10:33)
[2017-02-26 13:57] VITALS: BP 121/59
== END 2017-02-26 16:06 | disposition home or self-care (01) | DRG 280 ==
LOC: ER 12:48 → EDBD 12:48 → TELE 12:49 → TELE-EAST 20:00 → TELE 20:01 → TELE-EAST 02-24 23:40
PROVIDERS: ADMIT Internal Medicine; ATTEND Nurse Practitioner Acute Care
DX: I21.4 Non-ST elevation (NSTEMI) myocardial infarction (principal); N17.0 Acute kidney failure with tubular necrosis; A04.7 Enterocolitis due to Clostridium difficile; I13.0 Hypertensive heart and chronic kidney disease with heart failure and stage 1 through stage 4 chronic kidney disease, or unspecified chronic kidney disease; J98.11 Atelectasis; E44.1 Mild protein-calorie malnutrition; I25.110 Atherosclerotic heart disease of native coronary artery with unstable angina pectoris; E11.65 Type 2 diabetes mellitus with hyperglycemia; E11.21 Type 2 diabetes mellitus with diabetic nephropathy; E66.01 Morbid (severe) obesity due to excess calories; I50.9 Heart failure, unspecified; F17.210 Nicotine dependence, cigarettes, uncomplicated; F12.10 Cannabis abuse, uncomplicated; E11.22 Type 2 diabetes mellitus with diabetic chronic kidney disease; I25.10 Atherosclerotic heart disease of native coronary artery without angina pectoris; E78.5 Hyperlipidemia, unspecified; N18.9 Chronic kidney disease, unspecified; G89.29 Other chronic pain; M54.9 Dorsalgia, unspecified; I25.2 Old myocardial infarction; Z95.5 Presence of coronary angioplasty implant and graft; Z83.3 Family history of diabetes mellitus; Z82.49 Family history of ischemic heart disease and other diseases of the circulatory system; Z68.38 Body mass index [BMI] 38.0-38.9, adult; Z79.899 Other long term (current) drug therapy; Z71.3 Dietary counseling and surveillance
CPT/HCPCS: 36415; 71020; 80048; 80053; 80061; 80307; 81001; 81025; 82150; 82550; 82962; 83036; 83690; 83735; 83880; 84443; 84484; 85025; 85610; 85730; 87081; 93005; 93970; 94761; 96361; 96365; 96375; J1815; J2405; J3490; Q9967

== ENCOUNTER 2017-06-05 18:44 | Emergency (ER) | payer MEDICARE, MEDICAID ==
[~2017-06-05] VITALS: Ht 175.3 cm; Wt 110.7 kg
[~2017-06-05 18:44] MED LIST changes: +AMLO5TAB2; +CYCL1TAB18; +FUR20T; +INSUINJ37 SC; +MET500T PO; +NOVOLOG SC; +POTA10TA51
[2017-06-05 19:29] VITALS: BP 115/72
[2017-06-06] MEDS ORDERED: HYDROmorphone HCL 2 MG/ML VL IM ONE (00:15)
[2017-06-06] MEDS ORDERED: ONDANSETRON HCL 4 MG/2 ML VIAL IM ONE (00:15)
== END 2017-06-06 00:51 | disposition home or self-care (01) ==
LOC: ER 18:52
DX: H00.016 Hordeolum externum left eye, unspecified eyelid (principal); G89.29 Other chronic pain; M54.5 Low back pain; E11.22 Type 2 diabetes mellitus with diabetic chronic kidney disease; N18.9 Chronic kidney disease, unspecified; E78.5 Hyperlipidemia, unspecified; I12.9 Hypertensive chronic kidney disease with stage 1 through stage 4 chronic kidney disease, or unspecified chronic kidney disease; I25.2 Old myocardial infarction; F17.210 Nicotine dependence, cigarettes, uncomplicated; Z90.49 Acquired absence of other specified parts of digestive tract; Z79.899 Other long term (current) drug therapy; Z79.82 Long term (current) use of aspirin; Z79.4 Long term (current) use of insulin
CPT/HCPCS: 81025; 82962; 96372; 99284; J1170; J2405

== ENCOUNTER 2017-07-26 10:45 | Emergency (ER) | payer OTHER, MEDICAID ==
[~2017-07-26] VITALS: Ht 175.3 cm; Wt 108.9 kg
[2017-07-26 12:34] LABS: Basophils # (auto) 0.1 uL; Eosinophils # (auto) 0.3 uL; Eosinophils % (auto) 4.1 % (0.0-7.0); Hematocrit 38.7 % (36.0-46.0); Hemoglobin 13.3 g/dL (12.2-16.2); Lymphocytes # (auto) 1.7 uL; Lymphocytes % (auto) 24.5 % (10.0-50.0); Mean Corpuscular Hemoglobin 29.6 pg (28.0-32.0); Mean Corpuscular Hgb Conc. 34.3 g/dL (32.0-36.0); Mean Corpuscular Volume 86.2 fL (80.0-100.0); Mean Platelet Volume 7.3 fL (6.9-10.8); Monocytes # (auto) 0.5 uL; Neutrophils # (auto) 4.5 uL; Neutrophils % (auto) 63.4 % (37.0-80.0); Nucleated Red Blood Cells % 0.1 %; Platelet Count (auto) 241 10^3/uL (140-450); Red Cell Distribution Width 13.4 % (11.8-14.3); White Blood Cell 7.1 10^3/uL (4.4-10.8)
[2017-07-26 13:03] LABS: Albumin 3.4 g/dL (3.4-5.0); Alkaline Phosphatase 92 U/L (45-117); Anion Gap 9 (5-15); Aspartate Aminotransferase 15 U/L (15-37); BUN/Creatinine Ratio 15.7; Bilirubin, Total 0.4 mg/dL (0.2-1.0); Blood Urea Nitrogen 32 mg/dL (7-18); Calcium 8.5 mg/dL (8.5-10.1); Carbon Dioxide 22 mmol/L (21-32); Chloride 102 mmol/L (98-107); GFR African American 34 mL/min; GFR Non-African American 28 mL/min; Glucose 303 mg/dL (74-106); Potassium 4.4 mmol/L (3.5-5.1); Sodium 133 mmol/L (136-145); Total Protein 7.5 g/dL (6.4-8.2)
[2017-07-26] MEDS ORDERED: ONDANSETRON HCL 4 MG/2 ML VIAL IV ONE (14:15)
[2017-07-26] MEDS ORDERED: HYDROmorphone HCL 2 MG/ML VL IV ONE (14:15)
[2017-07-26 15:37] LABS: Urine Bilirubin Negative (Negative); Urine Blood Negative /uL (Negative); Urine Color Yellow (Yellow); Urine Glucose 2+ mg/dL (Normal); Urine Hyaline Cast FEW /lpf (0 - 2); Urine Ketone Negative (Negative); Urine Nitrite Negative (Negative); Urine RBC 1 /hpf (0 - 4); Urine Squamous Epithelial Cell MOD /hpf (<5); Urine Urobilinogen Normal (Negative)
[2017-07-26 17:00] VITALS: BP 134/65
== END 2017-07-26 17:11 | disposition home or self-care (01) ==
LOC: ER 10:45
DX: E11.22 Type 2 diabetes mellitus with diabetic chronic kidney disease (principal); I12.9 Hypertensive chronic kidney disease with stage 1 through stage 4 chronic kidney disease, or unspecified chronic kidney disease; N18.3 Chronic kidney disease, stage 3 (moderate); M79.601 Pain in right arm; I25.2 Old myocardial infarction; E78.5 Hyperlipidemia, unspecified; F17.210 Nicotine dependence, cigarettes, uncomplicated; Z79.82 Long term (current) use of aspirin; Z79.4 Long term (current) use of insulin
CPT/HCPCS: 36415; 74176; 80053; 81001; 83605; 84484; 85025; 93005; 94761; 96374; 96375; 99285; J1170; J2405

== ENCOUNTER 2017-09-01 01:22 | Emergency (ER) | payer OTHER, MEDICAID ==
[~2017-09-01] VITALS: Ht 165.1 cm; Wt 99.8 kg
[~2017-09-01 01:22] MED LIST changes: -FUR20T; +FUR20T PO; +INSLISPI SC; -NOVOLOG SC
[2017-09-01 01:30] VITALS: BP 123/70
== END 2017-09-01 05:17 | disposition left against medical advice (07) ==
LOC: EDBD 01:22 → ER 01:22
DX: M62.838 Other muscle spasm (principal); Z53.21 Procedure and treatment not carried out due to patient leaving prior to being seen by health care provider
CPT/HCPCS: 93005

== ENCOUNTER 2017-11-12 14:26 | Emergency (ER) | payer OTHER, MEDICAID ==
[~2017-11-12] VITALS: Ht 175.3 cm; Wt 108.4 kg
[2017-11-12 14:45] VITALS: BP 170/80
== END 2017-11-12 18:51 | disposition left against medical advice (07) ==
LOC: ER 14:26
DX: M79.672 Pain in left foot (principal); Z48.01 Encounter for change or removal of surgical wound dressing; Z53.21 Procedure and treatment not carried out due to patient leaving prior to being seen by health care provider

== ENCOUNTER 2018-09-20 03:05 | Emergency (ER) | payer OTHER, MEDICAID ==
[~2018-09-20] VITALS: Ht 175.3 cm; Wt 108.9 kg
[~2018-09-20 03:05] MED LIST changes: +AMLO5TAB13; -AMLO5TAB2
[2018-09-20 03:30] VITALS: BP 214/107
[2018-09-20] MEDS ORDERED: SODIUM CHLORIDE 0.9% 1,000 ML IV ONE (04:30)
[2018-09-20] MEDS ORDERED: InsuLIN REG 1unit/0.01ml Soln (100units/ml) IV ONE (04:30)
[2018-09-20] MEDS ORDERED: ACETAMINOPHEN 500 MG TAB PO ONE (05:00)
== END 2018-09-20 04:15 | disposition home or self-care (01) ==
LOC: EDSEX 03:05 → EDBD 03:05 → EDUNIT# 03:05 → ER 03:05
DX: E11.22 Type 2 diabetes mellitus with diabetic chronic kidney disease (principal); I12.9 Hypertensive chronic kidney disease with stage 1 through stage 4 chronic kidney disease, or unspecified chronic kidney disease; N18.9 Chronic kidney disease, unspecified; F17.210 Nicotine dependence, cigarettes, uncomplicated; Z88.5 Allergy status to narcotic agent; Z79.899 Other long term (current) drug therapy
CPT/HCPCS: 93005; 94761